=== PATIENT | female | born 1970 | race Caucasian/White ===

== ENCOUNTER 2017-11-20 00:22 | Emergency (ER) | payer MEDICAID, OTHER ==
[~2017-11-20] VITALS: Ht 170.2 cm; Wt 75.0 kg
[~2017-11-20 00:22] MED LIST: HYDR-569 PO; LISI-222 PO; NO HOME MEDS; [UNRECOGNIZED DRUG - CODE] PO
[2017-11-20 01:04] LABS: PARTIAL THROMBOPLASTIN TIME 25 SECONDS (22-32); PROTHROMBIN TIME 10.6 SECONDS (9.0-12.0)
[2017-11-20 01:07] LABS: ALANINE AMINOTRANSFERASE 45 U/L (12-78); ALBUMIN 3.6 G/DL (3.4-5.0); ALBUMIN/GLOBULIN RATIO 0.9 (1.1-1.5); ALKALINE PHOSPHATASE 61 IU/L (46-116); ANION GAP 9 (8-16); ASPARTATE AMINO TRANSFERASE 23 U/L (10-37); BILIRUBIN,TOTAL 1.1 MG/DL (0.1-1.0); BLOOD UREA NITROGEN 19 MG/DL (7-18); BUN/CREATININE RATIO 19.6 (6.6-38.0); CALCIUM 9.1 MG/DL (8.5-10.1); CHLORIDE 98 MMOL/L (99-107); CREATININE 0.97 MG/DL (0.40-0.90); GLUCOSE 112 MG/DL (70-104); SODIUM 133 MMOL/L (135-145); TOTAL CARBON DIOXIDE 26.4 MMOL/L (24-32); TOTAL PROTEIN 7.8 G/DL (6.4-8.2); eGFR 62 ML/MIN
[2017-11-20 01:10] LABS: POTASSIUM 2.9 MMOL/L (3.5-5.1)
[2017-11-20] MEDS ORDERED: potassium Cl 10 mEq/100mL bag IV ONE ×3 (01:15)
[2017-11-20] MEDS ORDERED: potassium 10mEq/100ml NS w/LIDOcaine (10mg/bag) IV ONE ×3 (01:20)
[2017-11-20] MEDS ORDERED: potassium Cl 20 mEq SR tablet PO STA (02:00)
[2017-11-20] MEDS ORDERED: HYDROcodone/acetaminophen 5mg/325mg tablet PO ONE (02:00)
[2017-11-20 02:29] LABS: BASOPHILS % (AUTO) 0 % (0-1); EOSINOPHILS # (AUTO) 0.2 X10'3 (0-0.9); EOSINOPHILS % (AUTO) 2.5 % (0-6); HEMATOCRIT 27.9 % (35.0-45.0); HEMOGLOBIN 8.3 g/dl (12.0-16.0); LYMPHOCYTES # (AUTO) 1.6 X10'3 (1.1-4.8); LYMPHOCYTES % (AUTO) 18.2 % (21-51); MEAN CORPUSCULAR HEMOGLOBIN 16.3 PG (27.0-31.0); MEAN CORPUSCULAR HGB CONC 29.7 % (33.0-36.5); MEAN CORPUSCULAR VOLUME 54.8 FL (78-98); MEAN PLATELET VOLUME 10.1 FL (7.4-10.4); MONOCYTES % (AUTO) 11.9 % (2-12); NEUTROPHILS # (AUTO) 5.8 X10'3 (1.8-7.7); NEUTROPHILS % (AUTO) 67.4 % (42-75); PLATELET COUNT 399 X10'3 (140-440); RED BLOOD COUNT 5.09 X10'6 (4.20-5.60); RED CELL DISTRIBUTION WIDTH 23.3 % (11.5-14.5); WHITE BLOOD COUNT 8.6 X10'3 (4.5-11.0)
[2017-11-20] MEDS ORDERED: morphine 4 MG/ML inj SYRINge IV ONE (03:00)
[2017-11-20 03:54] VITALS: BP 165/107
[2017-11-20 04:02] LABS: ANISOCYTOSIS 3+; PLATELET ESTIMATE NORMAL; TOTAL CELLS COUNTED 2
[2017-11-20 04:03] LABS: HYPOCHROMASIA 2+; MICROCYTOSIS 3+
[2017-11-20 04:04] LABS: GIANT PLATELET FEW; LARGE PLATELETS MODERATE
[2017-11-20] MEDS ORDERED: hydrALAZINE 20mg/ml inj. IV ONE (04:30)
[2017-11-20] MEDS ORDERED: HYDROmorphone 1 mg/ml syringe IV ONE (04:50)
[2017-11-20 05:12] LABS: POTASSIUM 3.4 MMOL/L (3.5-5.1)
[2017-11-20] MEDS ORDERED: diphenhydrAMINE 25mg capsule PO ONE (05:35)
== END 2017-11-20 05:51 ==
LOC: EEVIPCON 00:23 → ER 00:23
DX: E87.6 Hypokalemia (principal); R07.9 Chest pain, unspecified; R42 Dizziness and giddiness; R06.02 Shortness of breath; M54.2 Cervicalgia; R10.9 Unspecified abdominal pain; I10 Essential (primary) hypertension; G89.29 Other chronic pain; F17.200 Nicotine dependence, unspecified, uncomplicated; Z88.6 Allergy status to analgesic agent; Z98.890 Other specified postprocedural states; Z60.2 Problems related to living alone; Z56.0 Unemployment, unspecified
CPT/HCPCS: 36415; 71045; 74176; 80053; 84132; 84484; 85025; 85610; 85730; 93005; 96365; 96366; 96375; 99285; J0360; J1170; J2270; J3480

== ENCOUNTER 2018-12-12 15:43 | Inpatient (IN) | payer MEDICAID, OTHER ==
[~2018-12-12] VITALS: Ht 170.2 cm; Wt 75.0 kg
[~2018-12-12 15:43] MED LIST changes: -HYDR-569 PO; -LISI-222 PO; -[UNRECOGNIZED DRUG - CODE] PO
[2018-12-12] MEDS ORDERED: normal saline 1000ML IV soln IVB ONE (16:20)
[2018-12-12] MEDS ORDERED: morphine 4 MG/ML inj SYRINge IV ONE ×2 (16:20→17:55)
[2018-12-12] MEDS ORDERED: ondansetron/PF 4mg/2ml inj IV ONE (16:20)
[2018-12-12] MEDS ORDERED: vancomycin/NS 1 GM ADD-VANTAGE 250 ML X 1 DOSE IV ONE (16:30)
[2018-12-12 16:47] LABS: BASOPHILS # (AUTO) 0.1 X10'3 (0-0.2); BASOPHILS % (AUTO) 0.8 % (0-1); EOSINOPHILS # (AUTO) 0.2 X10'3 (0-0.9); EOSINOPHILS % (AUTO) 1.6 % (0-6); HEMATOCRIT 32.7 % (35.0-45.0); HEMOGLOBIN 9.9 g/dl (12.0-16.0); LYMPHOCYTES # (AUTO) 1.3 X10'3 (1.1-4.8); LYMPHOCYTES % (AUTO) 10.1 % (21-51); MEAN CORPUSCULAR HEMOGLOBIN 18.9 PG (27.0-31.0); MEAN CORPUSCULAR HGB CONC 30.4 g/dL (33.0-36.5); MEAN CORPUSCULAR VOLUME 62.2 FL (78-98); MEAN PLATELET VOLUME 8.4 FL (7.4-10.4); MONOCYTES # (AUTO) 0.9 X10'3 (0-0.9); NEUTROPHILS # (AUTO) 10.6 X10'3 (1.8-7.7); NEUTROPHILS % (AUTO) 80.5 % (42-75); PLATELET COUNT 317 X10'3 (140-440); RED BLOOD COUNT 5.25 X10'6 (4.20-5.60); RED CELL DISTRIBUTION WIDTH 23.6 % (11.5-14.5); WHITE BLOOD COUNT 13.2 X10'3 (4.5-11.0)
[2018-12-12 17:11] LABS: ALANINE AMINOTRANSFERASE 45 U/L (12-78); ALBUMIN 3.2 G/DL (3.4-5.0); ALBUMIN/GLOBULIN RATIO 0.7 (1.1-1.5); ALKALINE PHOSPHATASE 84 IU/L (46-116); ANION GAP 12 (8-16); ASPARTATE AMINO TRANSFERASE 34 U/L (10-37); BILIRUBIN,TOTAL 0.7 MG/DL (0.1-1.0); BLOOD UREA NITROGEN 12 MG/DL (7-18); BUN/CREATININE RATIO 13.5 (6.6-38.0); CALCIUM 9.2 MG/DL (8.5-10.1); CHLORIDE 102 MMOL/L (99-107); CREATININE 0.89 MG/DL (0.40-0.90); GLUCOSE 85 MG/DL (70-104); POTASSIUM 3.2 MMOL/L (3.5-5.1); SODIUM 139 MMOL/L (135-145); TOTAL CARBON DIOXIDE 24.6 MMOL/L (24-32); TOTAL PROTEIN 7.9 G/DL (6.4-8.2); eGFR 68 ML/MIN
[2018-12-12] MEDS ORDERED: TETanus/Pertussis (Acell)/Diphther VAC/PF (Tdap-Adult) 0.5ml syringe IM ONE (17:55)
[2018-12-12 17:57] LABS: PLATELET ESTIMATE NORMAL
[2018-12-12 17:58] LABS: ANISOCYTOSIS 3+; HYPOCHROMASIA 1+; MICROCYTOSIS 2+
[2018-12-12 17:59] LABS: POLYCHROMASIA 1+; SPHEROCYTES FEW; STOMATOCYTES 1+
[2018-12-12 18:00] LABS: SCHISTOCYTES FEW; TEAR DROP CELLS FEW
[2018-12-12 18:01] LABS: LARGE PLATELETS FEW
[2018-12-12] MEDS ORDERED: magnesium Cl slow-release 64mg tablet PO PRN (18:40)
[2018-12-12] MEDS ORDERED: magnesium 4gm in 100ml NS 100 ML IV PRN (18:40)
[2018-12-12] MEDS ORDERED: cefepime inj. 1 GM in normal saline 100ml IV soln 100 ML IV ONE (18:40)
[2018-12-12] MEDS ORDERED: HYDROcodone/acetaminophen 5mg/325mg tablet PO PRN (18:40)
[2018-12-12] MEDS ORDERED: morphine 2 MG/ML inj. syringe IV PRN (18:40)
[2018-12-12] MEDS ORDERED: magnesium 2GM in 50ml NS 50 ML IV PRN (18:40)
[2018-12-12] MEDS ORDERED: mag hydrox/Alum hydrox/simeth 30ml oral suspension PO PRN (18:40)
[2018-12-12] MEDS ORDERED: acetaminophen 325mg tablet PO PRN ×2 (18:40)
[2018-12-12] MEDS ORDERED: diphenhydrAMINE 25mg capsule PO PRN (18:40)
[2018-12-12] MEDS ORDERED: ondansetron/PF 4mg/2ml inj IV PRN (18:40)
[2018-12-12] MEDS ORDERED: magnesium hydroxide 30ml (MOM) UD suspension PO PRN (18:40)
[2018-12-12] MEDS ORDERED: potassium Cl 20 mEq SR tablet PO PRN (18:40)
[2018-12-12] MEDS ORDERED: potassium CL 10mEq/100ml bag 100 ML IV PRN ×2 (18:40)
[2018-12-12 19:02] LABS: HEMOGLOBIN A1C 4.9 % (4.5-6.2)
[2018-12-12 19:09] LABS: CLARITY,URINE CLEAR (Clear); COLOR,URINE YELLOW (Yellow); GLUCOSE, URINE NEGATIVE (Neg); KETONES,URINE NEGATIVE (Neg); LEUKOCYTE ESTERASE ,URINE NEGATIVE (Neg); NITRITES, URINE NEGATIVE (Neg); OCCULT BLOOD,URINE NEGATIVE (Neg); PH,URINE 5.5 (4.8-8.0); PROTEIN,URINE NEGATIVE (Neg); UROBILINOGEN,URINE 0.2 E.U/dL (0.2-1.0)
[2018-12-12 19:18] LABS: URINE AMPHETAMINE SCREEN POSITIVE (Neg); URINE BARBITUATE SCREEN NEGATIVE (Neg); URINE BENZODIAZEPINES SCREEN NEGATIVE (Neg); URINE CANNABINOID SCREEN POSITIVE (Neg); URINE COCAINE SCREEN NEGATIVE (Neg); URINE METHADONE SCREEN NEGATIVE (Neg); URINE OPIATE SCREEN POSITIVE (Neg); URINE PHENCYCLIDINE SCREEN NEGATIVE (Neg)
[2018-12-12 19:22] LABS: UA COLLECTION TYPE CLN CATCH MIDSTREAM
[2018-12-12] MEDS: normal saline 1000ml 1,000 ML IV SCH (19:36)
[2018-12-12] MEDS: heparin, porcine 5000 units/ml vial SQ SCH (21:57)
[2018-12-12] MEDS: K and/or MAG REPLACEMENT MC SCH (21:59)
[2018-12-12 22:00] VITALS: BP 170/98
[2018-12-12] MEDS: potassium Cl 20 mEq SR tablet PO PRN ×2 (22:37→22:45)
[2018-12-12] MEDS: morphine 2 MG/ML inj. syringe IV PRN ×2 (22:38→22:44)
[2018-12-12] MEDS: amLODIPine 5mg tablet PO SCH (22:42)
[2018-12-12 23:01] VITALS: BP 170/98
[2018-12-13] MEDS ORDERED: cefepime 1GM in D5W 50mL 50 ML IV SCH ×2
[2018-12-13] MEDS: cefepime inj. 1 GM in normal saline 100ml IV soln 100 ML IV SCH ×4 (00:24→23:41)
[2018-12-13] MEDS ORDERED: vancomycin/NS 1 GM ADD-VANTAGE 250 ML IV SCH (02:00)
[2018-12-13] MEDS: potassium Cl 20 mEq SR tablet PO PRN (02:21)
[2018-12-13] MEDS: morphine 2 MG/ML inj. syringe IV PRN ×3 (02:22→22:29)
[2018-12-13] MEDS: HYDROcodone/acetaminophen 10/325mg tab PO PRN (04:08)
[2018-12-13] MEDS: normal saline 1000ml 1,000 ML IV SCH ×2 (04:26→14:51)
[2018-12-13 04:47] LABS: BASOPHILS # (AUTO) 0.1 X10'3 (0-0.2); BASOPHILS % (AUTO) 0.7 % (0-1); EOSINOPHILS # (AUTO) 0.3 X10'3 (0-0.9); EOSINOPHILS % (AUTO) 2.6 % (0-6); HEMATOCRIT 28.5 % (35.0-45.0); HEMOGLOBIN 8.6 g/dl (12.0-16.0); LYMPHOCYTES # (AUTO) 1.4 X10'3 (1.1-4.8); LYMPHOCYTES % (AUTO) 13.4 % (21-51); MEAN CORPUSCULAR HGB CONC 30.2 g/dL (33.0-36.5); MEAN CORPUSCULAR VOLUME 62.9 FL (78-98); MONOCYTES % (AUTO) 9.7 % (2-12); NEUTROPHILS # (AUTO) 7.9 X10'3 (1.8-7.7); NEUTROPHILS % (AUTO) 73.6 % (42-75); PLATELET COUNT 270 X10'3 (140-440); RED BLOOD COUNT 4.53 X10'6 (4.20-5.60); RED CELL DISTRIBUTION WIDTH 22.4 % (11.5-14.5); WHITE BLOOD COUNT 10.7 X10'3 (4.5-11.0)
[2018-12-13 04:52] LABS: PARTIAL THROMBOPLASTIN TIME 31 SECONDS (22-32)
[2018-12-13 04:59] LABS: ALANINE AMINOTRANSFERASE 31 U/L (12-78); ALBUMIN 2.5 G/DL (3.4-5.0); ALBUMIN/GLOBULIN RATIO 0.7 (1.1-1.5); ALKALINE PHOSPHATASE 66 IU/L (46-116); ANION GAP 6 (8-16); ASPARTATE AMINO TRANSFERASE 20 U/L (10-37); BILIRUBIN,TOTAL 0.7 MG/DL (0.1-1.0); BLOOD UREA NITROGEN 12 MG/DL (7-18); CHLORIDE 104 MMOL/L (99-107); CHOL/HDL RATIO 2.3 (0.00-4.99); CHOLESTEROL 109 MG/DL (0-200); CREATININE 0.63 MG/DL (0.40-0.90); GLUCOSE 94 MG/DL (70-104); HDL CHOLESTEROL 48 MG/DL (35-60); LDL CHOLESTEROL 55 MG/DL (50-100); MAGNESIUM 1.5 MG/DL (1.5-2.4); POTASSIUM 3.5 MMOL/L (3.5-5.1); SODIUM 137 MMOL/L (135-145); TOTAL CARBON DIOXIDE 27.2 MMOL/L (24-32); TOTAL PROTEIN 6.3 G/DL (6.4-8.2); TRIGLYCERIDES 33 MG/DL (20-135); eGFR > 90 ML/MIN
--- NOTE | 2018-12-13 06:10 | NUR ---
Problems reprioritized. Patient report given, questions answered & plan of care reviewed with ENDY Forrest.
[2018-12-13 06:13] LABS: ANISOCYTOSIS 3+; MICROCYTOSIS 2+; PLATELET ESTIMATE NORMAL; POLYCHROMASIA 1+
[2018-12-13 06:14] LABS: HYPOCHROMASIA 1+; POIKILOCYTOSIS FEW
[2018-12-13 06:15] LABS: LARGE PLATELETS FEW
[2018-12-13 07:00] VITALS: BP 133/88
[2018-12-13] MEDS: K and/or MAG REPLACEMENT MC SCH (08:00)
[2018-12-13 09:02] LABS: HIV ANTIBODY 1&2 RAPID NON-REACTIVE (Neg)
[2018-12-13] MEDS: vancomycin/NS 1 GM ADD-VANTAGE 250 ML IV SCH ×2 (10:18→16:31)
[2018-12-13] MEDS: carVEDilol 3.125mg tablet PO SCH ×2 (10:19→20:54)
[2018-12-13] MEDS: amLODIPine 5mg tablet PO SCH (10:19)
[2018-12-13] MEDS: heparin, porcine 5000 units/ml vial SQ SCH ×2 (10:20→20:55)
--- NOTE | 2018-12-13 10:48 | NUR ---
LACEY urine at this point, pt. has not voided. Will assess at a later time. Pt. denies any issues/symptoms. Aware we are trying to obtain UA sample for preop UA. Addendum: 12/13/18 at 1053 by Adriane Couch RN Amended: Links added.
[2018-12-13 12:00] VITALS: BP 153/93
--- NOTE | 2018-12-13 15:06 | NUR ---
O2 Sat at rest on room air:__80_% If below 89%: Recovery O2 Sat at rest on ___LPM:_3__%:_89__% via NC (mask/nasal cannula, etc..) No further documentation is necessary. If O2 Sat did not drop below 89% on room air,ambulate patient on room air. O2 Sat while ambulating on room air:___% Recovery O2 Sat while ambulating on ___LPM:___% No further documentation is necessary. If patient does not drop below 89% while ambulating, he/she does not qualify for home O2. Addendum: 12/13/18 at 1507 by Adriane Couch RN WRONG PT.
--- NOTE | 2018-12-13 16:55 | NUR ---
Student Medication Administration: For this medication-pass time frame, all medication were reviewed, dispensed, administered and documented per hospital policy by Haris SCRUGGS [facility].
--- NOTE | 2018-12-13 18:20 | NUR ---
Patient in room [facility]. I have received report from Adriane SCHUMACHER and had the opportunity to ask questions and assume patient care.
--- NOTE | 2018-12-13 19:13 | NUR ---
Pt. in room resting comfortably with no needs at this time. Pt. in room, comfortable with no needs at this time. Problems reprioritized. Patient report given, questions answered & plan of care reviewed with Kalyan SCHUMACHER.
--- NOTE | 2018-12-13 19:14 | NUR ---
PT. C/O SOME TENDERNESS AT IV SITE. NO SWELLING OR SIGNS OF INFILTRATION AT THIS TIME. ALEKSANDAR SCHUMACHER MADE AWARE TO MONITOR AND IF NEEDED REPLACE FOR I&D IN AM.
[2018-12-13 20:00] VITALS: BP 146/84
[2018-12-13] MEDS: lactobacillus rhamnosus 10,000 MMU CELLS/CAPSULE PO SCH (20:54)
[2018-12-14] VITALS (17 sets, daily range): BP systolic 129–174; BP diastolic 60–106
[2018-12-14] MEDS: vancomycin/NS 1 GM ADD-VANTAGE 250 ML IV SCH (00:25)
[2018-12-14] MEDS: normal saline 1000ml 1,000 ML IV SCH ×3 (00:37→20:37)
--- NOTE | 2018-12-14 05:15 | NUR ---
pt refused morning labs. Retimed for 0730.
--- NOTE | 2018-12-14 06:21 | NUR ---
Problems reprioritized. Patient report given, questions answered & plan of care reviewed with Myrna SCHUMACHER.
--- NOTE | 2018-12-14 06:30 | NUR ---
Patient in room [facility] 348. I have received report from Kalyan SCHUMACHER and had the opportunity to ask questions and assume patient care. Patient resting in bed, denies needs at this time.
[2018-12-14] MEDS: heparin, porcine 5000 units/ml vial SQ SCH ×2 (06:48→19:12)
[2018-12-14] MEDS: lactobacillus rhamnosus 10,000 MMU CELLS/CAPSULE PO SCH ×2 (06:49→19:11)
[2018-12-14] MEDS: amLODIPine 5mg tablet PO SCH ×3 (06:49→12:56)
[2018-12-14 07:23] LABS: BASOPHILS # (AUTO) 0.1 X10'3 (0-0.2); BASOPHILS % (AUTO) 0.8 % (0-1); EOSINOPHILS # (AUTO) 0.3 X10'3 (0-0.9); EOSINOPHILS % (AUTO) 3.9 % (0-6); HEMATOCRIT 31.1 % (35.0-45.0); HEMOGLOBIN 9.4 g/dl (12.0-16.0); LYMPHOCYTES # (AUTO) 1.3 X10'3 (1.1-4.8); LYMPHOCYTES % (AUTO) 16.2 % (21-51); MEAN CORPUSCULAR HEMOGLOBIN 18.8 PG (27.0-31.0); MEAN CORPUSCULAR HGB CONC 30.1 g/dL (33.0-36.5); MEAN CORPUSCULAR VOLUME 62.6 FL (78-98); MEAN PLATELET VOLUME 8.7 FL (7.4-10.4); MONOCYTES # (AUTO) 0.7 X10'3 (0-0.9); MONOCYTES % (AUTO) 8.9 % (2-12); NEUTROPHILS # (AUTO) 5.5 X10'3 (1.8-7.7); NEUTROPHILS % (AUTO) 70.2 % (42-75); PLATELET COUNT 274 X10'3 (140-440); RED BLOOD COUNT 4.97 X10'6 (4.20-5.60); RED CELL DISTRIBUTION WIDTH 23.4 % (11.5-14.5); WHITE BLOOD COUNT 7.8 X10'3 (4.5-11.0)
[2018-12-14 07:30] LABS: ALANINE AMINOTRANSFERASE 35 U/L (12-78); ALBUMIN 2.5 G/DL (3.4-5.0); ALBUMIN/GLOBULIN RATIO 0.6 (1.1-1.5); ALKALINE PHOSPHATASE 67 IU/L (46-116); ANION GAP 8 (8-16); ASPARTATE AMINO TRANSFERASE 32 U/L (10-37); BILIRUBIN,TOTAL 0.5 MG/DL (0.1-1.0); BLOOD UREA NITROGEN 10 MG/DL (7-18); BUN/CREATININE RATIO 16.4 (6.6-38.0); CALCIUM 8.5 MG/DL (8.5-10.1); CHLORIDE 105 MMOL/L (99-107); CREATININE 0.61 MG/DL (0.40-0.90); GLUCOSE 82 MG/DL (70-104); MAGNESIUM 1.8 MG/DL (1.5-2.4); PHOSPHORUS 3.2 MG/DL (2.3-4.5); POTASSIUM 3.9 MMOL/L (3.5-5.1); SODIUM 139 MMOL/L (135-145); TOTAL PROTEIN 6.8 G/DL (6.4-8.2); VANCOMYCIN,TROUGH 7.4 UG/ML (6.0-14.0); eGFR > 90 ML/MIN
[2018-12-14] MEDS: cefepime inj. 1 GM in normal saline 100ml IV soln 100 ML IV SCH ×3 (07:30→23:30)
[2018-12-14] MEDS ORDERED: VANCOMYCIN LEVEL IV ONE (07:30)
[2018-12-14] MEDS: carVEDilol 3.125mg tablet PO SCH ×2 (07:33→19:11)
[2018-12-14] MEDS: morphine 2 MG/ML inj. syringe IV PRN ×2 (07:33→16:59)
[2018-12-14] MEDS: K and/or MAG REPLACEMENT MC SCH (08:00)
[2018-12-14 08:13] LABS: ANISOCYTOSIS 3+; HYPOCHROMASIA 2+; MICROCYTOSIS 2+; PLATELET ESTIMATE NORMAL
[2018-12-14 08:14] LABS: POLYCHROMASIA FEW
[2018-12-14] MEDS ORDERED: ringers solution, lacted 1,000 ML IV SCH (09:56)
[2018-12-14] MEDS ORDERED: hydrALAZINE 20mg/ml inj. IV PRN (10:00)
[2018-12-14] MEDS ORDERED: HYDROmorphone inj. 0.5 MG/0.5 ML DISP.SYRIN IV PRN (10:00)
[2018-12-14] MEDS ORDERED: morphine 4 MG/ML inj SYRINge IV PRN ×2 (10:00)
[2018-12-14] MEDS ORDERED: labetalol 20mg/4ml (5mg/ml) syringe IV PRN (10:00)
[2018-12-14] MEDS ORDERED: ondansetron/PF 4mg/2ml inj IV PRN (10:00)
[2018-12-14 10:07] LABS: URINE HCG NEGATIVE (NEG)
--- NOTE | 2018-12-14 10:30 | NUR ---
report called to Alek SCHUMACHER in Recovery as patient is headed to OR. Will assess patient following surgery.
[2018-12-14] MEDS ORDERED: propofol inj 20 ML IV ONE (11:07)
[2018-12-14] MEDS ORDERED: ondansetron/PF 4mg/2ml inj ONE (11:07)
[2018-12-14] MEDS ORDERED: fentaNYL/PF 50MCG/1 ML 2ML syringe ONE (11:07)
[2018-12-14] MEDS ORDERED: LIDOcaine 2% (20mg/ml) 5ml vial ONE (11:07)
[2018-12-14] MEDS ORDERED: midazolam 2 mg/2 ml injection ONE (11:07)
[2018-12-14] MEDS ORDERED: dexamethasone sod phosphate 10mg/ml inj ONE (11:21)
[2018-12-14] MEDS ORDERED: sevoflurane 250ml liquid IH ONE (11:21)
[2018-12-14] MEDS: HYDROmorphone inj. 0.5 MG/0.5 ML DISP.SYRIN IV PRN ×2 (12:05→12:17)
--- NOTE | 2018-12-14 12:30 | NUR ---
Received report from Randall SCHUMACHER from recovery, patient tolerating pain well, will assess when she arrives to floor.
--- NOTE | 2018-12-14 12:34 | NUR ---
Report called to receiving nurse. Transferred via BED Belongings . Special Issues communicated to receiving nurse. AWAKE AND ORIENTED. VITALS STABLE. DRESSING DI. STATES PAIN IMPROVING. TO SURGICAL RM 348B AT THIS TIME.
[2018-12-14 13:18] LABS: HBSAG SCREEN Negative (Negative); HEP B CORE AB, TOT Negative (Negative); HEPATITIS C ANTIBODY >11.0 s/co ratio (0.0-0.9)
--- NOTE | 2018-12-14 18:07 | NUR ---
Problems reprioritized. Patient report given, questions answered & plan of care reviewed with Kalyan SCHUMACHER. Patient eating dinner, denies needs at this time.
--- NOTE | 2018-12-14 18:15 | NUR ---
Patient in room [facility] 348. I have received report from Myrna SCHUMACHER and had the opportunity to ask questions and assume patient care.
[2018-12-14] MEDS: HYDROcodone/acetaminophen 10/325mg tab PO PRN (21:18)
[2018-12-15 00:20] VITALS: BP 138/80
[2018-12-15] MEDS: morphine 2 MG/ML inj. syringe IV PRN (02:23)
[2018-12-15 05:14] LABS: BASOPHILS # (AUTO) 0.1 X10'3 (0-0.2); BASOPHILS % (AUTO) 0.4 % (0-1); EOSINOPHILS % (AUTO) 0 % (0-6); HEMATOCRIT 28.8 % (35.0-45.0); HEMOGLOBIN 8.5 g/dl (12.0-16.0); LYMPHOCYTES # (AUTO) 0.9 X10'3 (1.1-4.8); LYMPHOCYTES % (AUTO) 6.8 % (21-51); MEAN CORPUSCULAR HEMOGLOBIN 18.6 PG (27.0-31.0); MEAN CORPUSCULAR HGB CONC 29.6 g/dL (33.0-36.5); MEAN PLATELET VOLUME 8.8 FL (7.4-10.4); MONOCYTES # (AUTO) 0.6 X10'3 (0-0.9); MONOCYTES % (AUTO) 4.5 % (2-12); NEUTROPHILS # (AUTO) 12.3 X10'3 (1.8-7.7); NEUTROPHILS % (AUTO) 88.3 % (42-75); PLATELET COUNT 329 X10'3 (140-440); RED BLOOD COUNT 4.58 X10'6 (4.20-5.60); WHITE BLOOD COUNT 13.9 X10'3 (4.5-11.0)
[2018-12-15 05:50] LABS: ALANINE AMINOTRANSFERASE 32 U/L (12-78); ALBUMIN 2.4 G/DL (3.4-5.0); ALBUMIN/GLOBULIN RATIO 0.6 (1.1-1.5); ALKALINE PHOSPHATASE 65 IU/L (46-116); ANION GAP 9 (8-16); ASPARTATE AMINO TRANSFERASE 24 U/L (10-37); BILIRUBIN,TOTAL 0.3 MG/DL (0.1-1.0); BLOOD UREA NITROGEN 16 MG/DL (7-18); BUN/CREATININE RATIO 19.8 (6.6-38.0); CALCIUM 8.8 MG/DL (8.5-10.1); CHLORIDE 105 MMOL/L (99-107); CREATININE 0.81 MG/DL (0.40-0.90); GLUCOSE 174 MG/DL (70-104); MAGNESIUM 1.9 MG/DL (1.5-2.4); PHOSPHORUS 3.6 MG/DL (2.3-4.5); POTASSIUM 4.1 MMOL/L (3.5-5.1); SODIUM 140 MMOL/L (135-145); TOTAL CARBON DIOXIDE 25.6 MMOL/L (24-32); TOTAL PROTEIN 6.7 G/DL (6.4-8.2); eGFR 76 ML/MIN
--- NOTE | 2018-12-15 06:15 | NUR ---
Patient in room [facility] 348. I have received report from Kalyan SCHUMACHER and had the opportunity to ask questions and assume patient care. Patient resting eyes closed respirations even. Will continue to monitor.
--- NOTE | 2018-12-15 06:16 | NUR ---
Problems reprioritized. Patient report given, questions answered & plan of care reviewed with Myrna SCHUMACHER.
[2018-12-15] MEDS: normal saline 1000ml 1,000 ML IV SCH ×2 (06:37→16:02)
[2018-12-15 07:32] LABS: ANISOCYTOSIS 3+; HYPOCHROMASIA 2+; MICROCYTOSIS 2+; PLATELET ESTIMATE NORMAL; POLYCHROMASIA 1+
[2018-12-15 07:33] LABS: ELLIPTOCYTES FEW; STOMATOCYTES 1+
[2018-12-15 07:38] VITALS: BP 140/91
[2018-12-15] MEDS: K and/or MAG REPLACEMENT MC SCH (08:00)
[2018-12-15] MEDS: cefepime inj. 1 GM in normal saline 100ml IV soln 100 ML IV SCH ×3 (08:10→23:40)
[2018-12-15] MEDS: lactobacillus rhamnosus 10,000 MMU CELLS/CAPSULE PO SCH ×2 (08:18→19:20)
[2018-12-15] MEDS: carVEDilol 3.125mg tablet PO SCH ×2 (08:18→19:20)
[2018-12-15] MEDS: amLODIPine 5mg tablet PO SCH (08:18)
[2018-12-15] MEDS: heparin, porcine 5000 units/ml vial SQ SCH ×2 (08:20→19:21)
[2018-12-15] MEDS ORDERED: VANCOMYCIN LEVEL IV ONE (08:30)
--- NOTE | 2018-12-15 09:36 | NUR ---
Dr Neri called for dressing orders, he stated 'have wound care evaluate and treat'. He also stated that the pt may weight bear as tolerated.
[2018-12-15] MEDS: HYDROcodone/acetaminophen 10/325mg tab PO PRN ×2 (09:54→16:02)
[2018-12-15] MEDS ORDERED: LIDOcaine 4% (40 mg/ml) topical solution 50ml TP PRN (10:30)
[2018-12-15 12:00] VITALS: BP 154/86
--- NOTE | 2018-12-15 13:28 | NUR ---
WOUND INFECTION EDUCATION PROVIDED BY WOUND CARE 1. Patient instructed to call their primary doctor, or go the ED immediately if any of the following symptoms occur: * Increased pain in wound * Increase in drainage from the wound * Redness in the skin surrounding the wound * Warmth in the skin surrounding the wound * Bleeding from the wound * Temperature of 101 or greater 2. If any of these occur while in the hospital tell a nurse immediately. Addendum: 12/15/18 at 1331 by Mena Mcallister RN Amended: Links added.
[2018-12-15 18:00] VITALS: BP 154/83
--- NOTE | 2018-12-15 18:10 | NUR ---
Patient in room [facility] 348. I have received report from Myrna SCHUMACHER and had the opportunity to ask questions and assume patient care.
--- NOTE | 2018-12-15 18:34 | NUR ---
Problems reprioritized. Patient report given, questions answered & plan of care reviewed with Kalyan SCHUMACHER. Patient resting eyes closed respirations even.
[2018-12-15] MEDS: miconazole nitrate 2% 45gm VAG cream VG SCH (22:00)
[2018-12-16] MEDS: HYDROcodone/acetaminophen 10/325mg tab PO PRN ×3 (00:40→22:59)
[2018-12-16] MEDS: normal saline 1000ml 1,000 ML IV SCH ×3 (02:37→17:26)
[2018-12-16 03:33] VITALS: BP 155/90
[2018-12-16 05:33] LABS: BASOPHILS # (AUTO) 0.1 X10'3 (0-0.2); BASOPHILS % (AUTO) 0.8 % (0-1); EOSINOPHILS # (AUTO) 0.1 X10'3 (0-0.9); EOSINOPHILS % (AUTO) 1.1 % (0-6); HEMATOCRIT 27.7 % (35.0-45.0); HEMOGLOBIN 8.4 g/dl (12.0-16.0); LYMPHOCYTES # (AUTO) 1.6 X10'3 (1.1-4.8); LYMPHOCYTES % (AUTO) 17.7 % (21-51); MEAN CORPUSCULAR HEMOGLOBIN 19.3 PG (27.0-31.0); MEAN CORPUSCULAR HGB CONC 30.5 g/dL (33.0-36.5); MEAN CORPUSCULAR VOLUME 63.2 FL (78-98); MEAN PLATELET VOLUME 8.9 FL (7.4-10.4); MONOCYTES # (AUTO) 0.8 X10'3 (0-0.9); MONOCYTES % (AUTO) 8.4 % (2-12); NEUTROPHILS # (AUTO) 6.6 X10'3 (1.8-7.7); PLATELET COUNT 326 X10'3 (140-440); RED BLOOD COUNT 4.38 X10'6 (4.20-5.60); WHITE BLOOD COUNT 9.2 X10'3 (4.5-11.0)
[2018-12-16 05:38] LABS: ALANINE AMINOTRANSFERASE 31 U/L (12-78); ALBUMIN 2.3 G/DL (3.4-5.0); ALBUMIN/GLOBULIN RATIO 0.6 (1.1-1.5); ALKALINE PHOSPHATASE 56 IU/L (46-116); ANION GAP 9 (8-16); ASPARTATE AMINO TRANSFERASE 21 U/L (10-37); BILIRUBIN,TOTAL 0.3 MG/DL (0.1-1.0); BLOOD UREA NITROGEN 10 MG/DL (7-18); BUN/CREATININE RATIO 15.6 (6.6-38.0); CALCIUM 8.2 MG/DL (8.5-10.1); CHLORIDE 108 MMOL/L (99-107); CREATININE 0.64 MG/DL (0.40-0.90); GLUCOSE 89 MG/DL (70-104); MAGNESIUM 1.6 MG/DL (1.5-2.4); PHOSPHORUS 3.7 MG/DL (2.3-4.5); POTASSIUM 3.7 MMOL/L (3.5-5.1); SODIUM 143 MMOL/L (135-145); TOTAL CARBON DIOXIDE 26.1 MMOL/L (24-32); TOTAL PROTEIN 6.3 G/DL (6.4-8.2); eGFR > 90 ML/MIN
--- NOTE | 2018-12-16 06:28 | NUR ---
Problems reprioritized. Patient report given, questions answered & plan of care reviewed with Patt SCHUMACHER.
[2018-12-16 07:00] VITALS: BP 158/110
--- NOTE | 2018-12-16 07:00 | NUR ---
Patient in room [facility] 348. I have received report from brenda rick and had the opportunity to ask questions and assume patient care.
[2018-12-16] MEDS: K and/or MAG REPLACEMENT MC SCH (07:07)
[2018-12-16 07:21] LABS: PLATELET ESTIMATE NORMAL
[2018-12-16 07:22] LABS: ANISOCYTOSIS 3+; HYPOCHROMASIA 1+; MICROCYTOSIS 2+; POIKILOCYTOSIS FEW; POLYCHROMASIA 1+
--- NOTE | 2018-12-16 08:17 | NUR ---
Dr Stanley paged to notify of MRSA to left leg wound.
[2018-12-16] MEDS: carVEDilol 3.125mg tablet PO SCH ×2 (08:26→23:01)
[2018-12-16] MEDS: lactobacillus rhamnosus 10,000 MMU CELLS/CAPSULE PO SCH ×2 (08:26→22:58)
[2018-12-16] MEDS: amLODIPine 5mg tablet PO SCH (08:26)
[2018-12-16] MEDS: cefepime inj. 1 GM in normal saline 100ml IV soln 100 ML IV SCH ×2 (08:26→16:18)
[2018-12-16] MEDS: heparin, porcine 5000 units/ml vial SQ SCH ×2 (08:27→23:04)
[2018-12-16 10:36] VITALS: BP 118/108
[2018-12-16 10:48] VITALS: BP 140/90
[2018-12-16 11:00] VITALS: BP 128/87
[2018-12-16 18:00] VITALS: BP 152/97
--- NOTE | 2018-12-16 18:35 | NUR ---
Problems reprioritized. Patient report given, questions answered & plan of care reviewed with kamille rick.
--- NOTE | 2018-12-16 19:00 | NUR ---
Patient in room [facility] 352. I have received report from Patt SCHUMACHER and had the opportunity to ask questions and assume patient care. Addendum: 12/16/18 at 1926 by Iveth Banerjee RN Amended: Links added.
--- NOTE | 2018-12-16 19:00 | NUR ---
Patient in room [facility] 352. I have received report from nurse Patt SCHUMACHER and had the opportunity to ask questions and assume patient care. Addendum: 12/16/18 at 1922 by Iveth Banerjee RN Amended: Links added.
[2018-12-16] MEDS: miconazole nitrate 2% 45gm VAG cream VG SCH (21:00)
[2018-12-17] VITALS: BP 166/109
[2018-12-17] MEDS: cefepime inj. 1 GM in normal saline 100ml IV soln 100 ML IV SCH ×4 (00:23→23:33)
--- NOTE | 2018-12-17 06:00 | NUR ---
Patient report given, questions answered & plan of care reviewed with ENDY Valencia. Addendum: 12/17/18 at 0738 by Iveth Banerjee RN Amended: Links added.
[2018-12-17 06:41] LABS: BASOPHILS # (AUTO) 0.1 X10'3 (0-0.2); BASOPHILS % (AUTO) 0.8 % (0-1); EOSINOPHILS # (AUTO) 0.2 X10'3 (0-0.9); EOSINOPHILS % (AUTO) 3.2 % (0-6); HEMATOCRIT 31.2 % (35.0-45.0); HEMOGLOBIN 9.3 g/dl (12.0-16.0); LYMPHOCYTES # (AUTO) 2.1 X10'3 (1.1-4.8); MEAN CORPUSCULAR HEMOGLOBIN 18.7 PG (27.0-31.0); MEAN CORPUSCULAR HGB CONC 29.8 g/dL (33.0-36.5); MEAN CORPUSCULAR VOLUME 62.8 FL (78-98); MEAN PLATELET VOLUME 9.2 FL (7.4-10.4); MONOCYTES # (AUTO) 0.8 X10'3 (0-0.9); MONOCYTES % (AUTO) 10.6 % (2-12); NEUTROPHILS # (AUTO) 4.6 X10'3 (1.8-7.7); NEUTROPHILS % (AUTO) 58.4 % (42-75); PLATELET COUNT 376 X10'3 (140-440); RED BLOOD COUNT 4.96 X10'6 (4.20-5.60); RED CELL DISTRIBUTION WIDTH 24.1 % (11.5-14.5); WHITE BLOOD COUNT 7.9 X10'3 (4.5-11.0)
[2018-12-17 06:52] LABS: ANION GAP 8 (8-16); BLOOD UREA NITROGEN 7 MG/DL (7-18); BUN/CREATININE RATIO 11.3 (6.6-38.0); CHLORIDE 104 MMOL/L (99-107); CREATININE 0.62 MG/DL (0.40-0.90); GLUCOSE 83 MG/DL (70-104); POTASSIUM 4.1 MMOL/L (3.5-5.1); SODIUM 140 MMOL/L (135-145); TOTAL CARBON DIOXIDE 27.6 MMOL/L (24-32)
[2018-12-17 06:53] LABS: ALANINE AMINOTRANSFERASE 36 U/L (12-78); ALBUMIN 2.6 G/DL (3.4-5.0); ALBUMIN/GLOBULIN RATIO 0.6 (1.1-1.5); ALKALINE PHOSPHATASE 60 IU/L (46-116); ASPARTATE AMINO TRANSFERASE 28 U/L (10-37); BILIRUBIN,TOTAL 0.4 MG/DL (0.1-1.0); CALCIUM 8.6 MG/DL (8.5-10.1); MAGNESIUM 1.6 MG/DL (1.5-2.4); PHOSPHORUS 4.3 MG/DL (2.3-4.5); TOTAL PROTEIN 6.9 G/DL (6.4-8.2); eGFR > 90 ML/MIN
[2018-12-17 08:00] VITALS: BP 135/55
[2018-12-17] MEDS: K and/or MAG REPLACEMENT MC SCH (08:00)
[2018-12-17] MEDS: amLODIPine 5mg tablet PO SCH (08:26)
[2018-12-17] MEDS: lactobacillus rhamnosus 10,000 MMU CELLS/CAPSULE PO SCH ×2 (08:26→20:10)
[2018-12-17] MEDS: carVEDilol 3.125mg tablet PO SCH ×2 (08:26→20:09)
[2018-12-17] MEDS: heparin, porcine 5000 units/ml vial SQ SCH ×2 (08:27→20:00)
[2018-12-17] MEDS: HYDROcodone/acetaminophen 10/325mg tab PO PRN ×2 (08:34→17:49)
[2018-12-17] MEDS: normal saline 1000ml 1,000 ML IV SCH ×3 (08:42→23:32)
[2018-12-17 09:17] LABS: PLATELET ESTIMATE NORMAL
[2018-12-17 09:18] LABS: ANISOCYTOSIS 3+; LARGE PLATELETS FEW; MICROCYTOSIS 2+
[2018-12-17 09:19] LABS: HYPOCHROMASIA 1+
[2018-12-17 11:00] VITALS: BP 144/65
--- NOTE | 2018-12-17 15:23 | NUR ---
Initial: Pt admit w/ severe cellulitis and abscess s/p I&D reports spide bite. Positive for meth this admit. Pt PO 100% avg meals meeting needs requesting double or triple portions of some foods w/ write-ins on menu. Double proteins TIDWM have been added to meals; RD notified RN about pt requests and that pt will not receive extra portions meeting needs w/ current PO and extra proteins addition. RN reports pt likely attempting to feed others as well as herself since many visitors. LBM 12/15. No nutrition concerns at this time. Rec: 1. continue regular diet; double proteins TIDWM 2. wt per rx Addendum: 12/17/18 at [address] Amended: Links added.
[2018-12-17 18:00] VITALS: BP 136/86
--- NOTE | 2018-12-17 18:10 | NUR ---
Patient in room [facility] 352. I have received report from ENDY Valencia and had the opportunity to ask questions and assume patient care.
[2018-12-17] MEDS: miconazole nitrate 2% 45gm VAG cream VG SCH (20:17)
[2018-12-18] VITALS: BP 149/91
--- NOTE | 2018-12-18 06:14 | NUR ---
Problems reprioritized. Patient report given, questions answered & plan of care reviewed with ENDY Valencia.
[2018-12-18 08:00] VITALS: BP 149/95
[2018-12-18] MEDS: K and/or MAG REPLACEMENT MC SCH (08:00)
[2018-12-18] MEDS: lactobacillus rhamnosus 10,000 MMU CELLS/CAPSULE PO SCH (08:14)
[2018-12-18] MEDS: carVEDilol 3.125mg tablet PO SCH (08:14)
[2018-12-18] MEDS: amLODIPine 5mg tablet PO SCH (08:14)
[2018-12-18] MEDS: cefepime inj. 1 GM in normal saline 100ml IV soln 100 ML IV SCH (08:14)
[2018-12-18] MEDS: heparin, porcine 5000 units/ml vial SQ SCH (08:15)
[2018-12-18] MEDS: HYDROcodone/acetaminophen 10/325mg tab PO PRN (08:15)
[2018-12-18 11:00] VITALS: BP 129/92
--- NOTE | 2018-12-18 12:00 | NUR ---
Patient states that she would like to leave against medical advice. MD notified and patient educated on the risk of leaving at this point in time. Patient still chooses to leave. AMA form signed.
[2018-12-18] MEDS ORDERED: DOXYCYCLINE 100MG CAPSULE PO SCH (17:30)
[2018-12-18] MEDS ORDERED: ciprofloxacin 250mg tablet PO SCH (22:00)
== END 2018-12-18 12:11 | disposition left against medical advice (07) | DRG 383 ==
LOC: ER 15:44 → EDBEDREQTM 21:01 → SUR 3N 22:09 → CMPBEDREQ 22:18 → SUR 3N 12-16 11:21
PROVIDERS: ADMIT Family Medicine; ATTEND Family Medicine
PROC: 0JBP0ZZ Excision of Left Lower Leg Subcutaneous Tissue and Fascia, Open Approach (ICD-10-PCS; principal; 2018-12-14 11:21)
DX: L03.116 Cellulitis of left lower limb (principal); B19.20 Unspecified viral hepatitis C without hepatic coma; L02.416 Cutaneous abscess of left lower limb; E87.6 Hypokalemia; F15.10 Other stimulant abuse, uncomplicated; F12.10 Cannabis abuse, uncomplicated; F32.9 Major depressive disorder, single episode, unspecified; F41.9 Anxiety disorder, unspecified; Z53.21 Procedure and treatment not carried out due to patient leaving prior to being seen by health care provider; D64.9 Anemia, unspecified; G89.29 Other chronic pain; M54.9 Dorsalgia, unspecified; F17.210 Nicotine dependence, cigarettes, uncomplicated; I10 Essential (primary) hypertension; T63.331A Toxic effect of venom of brown recluse spider, accidental (unintentional), initial encounter; Z82.0 Family history of epilepsy and other diseases of the nervous system; Z82.49 Family history of ischemic heart disease and other diseases of the circulatory system; Y92.89 Other specified places as the place of occurrence of the external cause; Z88.8 Allergy status to other drugs, medicaments and biological substances; Z71.6 Tobacco abuse counseling; Z71.51 Drug abuse counseling and surveillance of drug abuser
CPT/HCPCS: 36415; 71045; 73590; 73721; 80053; 80061; 80202; 80305; 81003; 81025; 82948; 83036; 83605; 83735; 84100; 84145; 85025; 85610; 85730; 86703; 86704; 86706; 86803; 87040; 87070; 87075; 87077; 87081; 87186; 87340; 93005; 96365; 96375; 96376; 99285; A4618; A6446; A6449; A7000; G0378; J0692; J1100; J1170; J1644; J2001; J2250; J2270; J2405; J2704; J3010; J3370; J7030; J7120